=== PATIENT | female | born 1990 | race Caucasian/White ===

== ENCOUNTER 2023-07-28 07:41 | Inpatient (IN) ==
[2023-07-28] MEDS ORDERED: OXYTOCIN 30 UNITS/NSS 30 UNITS/500 ML BAG IV PRN ×3 (08:25→13:04)
[2023-07-28] MEDS ORDERED: LIDOCAINE 1% LOCAL 20 ML VIAL INFIL PRN (08:25)
--- NOTE | 2023-07-28 08:32 | History & Physical Report ---
Date of Service July 28, 2023 Assessment & Plan (1) Elective induction of labor planned: (2) Hx of pre-term labor: (3) History of precipitous delivery: Plan: 33-year-old -0-0-1 at 39 weeks of gestation who was scheduled for induction of labor at term due to history of precipitous labor, Vital signs stable afebrile, heart rate reassuring, GBS negative, Cervix favorable, Plan to admit, labs, IV fluids, monitor, start oxytocin per protocol, epidural a s needed for pain, All questions were answered. Admission and Anticipated Discharge Date Admission Date: July 28, 2023 History of Present Illness Primary Care Provider: Wei Cat PA-C Patient is a 33-year-old -0-0-1 at 39 weeks of gestation who was scheduled for induction of labor at term due to history of prior precipitous labor. She has delivered her first baby within 3 hours from start of labor until delivery of in 2010. During this she had threatened labor which was stopped and then delivered at 37 weeks. Patient denies contractions, leakage of fluid, vaginal bleeding. She reports good movements. This has been uncomplicated. GBS negative. She denies any medical problems. Allergies Allergy/AdvReac Type Severity Reaction Status Date / Time No Known Allergies Allergy Unverified 06/22/23 17:57 Home Medications Medication Instructions Recorded Confirmed Type coenzyme Q10 100 mg capsule 100 mg PO DAILY 06/22/23 06/22/23 History (CoQ-10) magnesium 1 tab PO DAILY 06/22/23 06/22/23 History prenat.vits,susan,[id number] 1 tab PO DAILY 06/22/23 06/22/23 History Patient History Medical History (Updated 07/28/23 @ 08:31 by Go Lemus MD) Hx of pre-term labor Migraine Anemia Social History Smoking Status: Never smoker Second Hand Exposure: No; Hx Alcohol Use: No Hx Substance Use: No Preferred Language: [place] Dynamite Shooter Required: No Beliefs That Will Affect Care: None marital status: Current Living Situation: Spouse Current Living Situation Comment: Lives with , Lnicoln and Daughter Sandie Feels Safe at Home: Yes Safety Concerns: Feels Safe At This Time 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 Review of Systems as per Subjective / HPI Physical Exam Constitutional: WD/WN, vitals as above well developed, well nourished and comfortable Gastrointestinal (Abdomen): normal bowel sounds, soft, nontender, no hepatosplenomegaly (Gravid) Genitourinary: normal external appearance OB Exam Abdomen: + vertex Manual OB Exam: + cervical dilation 4 cm, + cervical effacement 50% and + station -2 OB Exam Monitor Tracing: + external uterine monitor used and + category I Results & Data Vital Signs (Past 12 Hours) Vital Signs Temp Pulse Resp BP 07/28/23 07:59 18 07/28/23 07:59 36.8 C 18 07/28/23 07:55 95 H 117/69
[2023-07-28 08:55] LABS: Hematocrit (blood only) 32.8 % (37.0-47.0); Hemoglobin 11.4 g/dl (12.0-16.0); Mean Corpuscular Hemoglobin 30.6 pg (25.0-34.0); Mean Corpuscular Hgb Conc 34.8 g/dL (32.0-36.0); Mean Corpuscular Volume 87.9 fL (80.0-100.0); Mean Platelet Volume 10.6 fL (9.4-12.4); Platelet Count 209 K/uL (130-400); RDW Standard Deviation 45.2 fL (36.4-46.3); Red Blood Count 3.73 M/uL (4.20-5.40)
[2023-07-28] MEDS: LACTATED RINGER'S 1,000 ML IV PRN ×2 (09:12→11:36)
[2023-07-28] MEDS ORDERED: SODIUM CHLORIDE 0.9% PF INJ 10 ML VIAL ONE (10:53)
[2023-07-28] MEDS ORDERED: fentANYL 2 MCG/ML BUPIVacaine 0.125%-NSS 100ML BAG ONE (10:53)
[2023-07-28] MEDS ORDERED: LIDOCAINE 2%/EPINEPHRINE 1:200,000 20 ML PF ONE (10:53)
[2023-07-28] MEDS ORDERED: fentaNYL citrate PF 100 MCG/2 ML VIAL ONE (10:53)
[2023-07-28] MEDS ORDERED: BUPIVACAINE 0.25% PF 30 ML VIAL ONE (10:53)
[2023-07-28] MEDS ORDERED: ePHEDrine sulfate 50 MG/ML AMP ONE (10:53)
--- NOTE | 2023-07-28 11:09 | Anesthesiology Consultation ---
Date of Service July 28, 2023 Assessment & Plan Chart Review Chart Review: Patient NOT seen in Pre Admission Testing and Acceptable Risk for Labor Epidural Consults Requested none ASA ASA2 Proposed Anesthesia Anesthesia Type: Labor Epidural Risk / Benefits Reviewed With: PT / POA / Parent / Guardian, Accepts Plan and Informed Consent Obtained History Height/Weight Height: 5 ft 2 in Weight: 85.275 kg Allergies Allergy/AdvReac Type Severity Reaction Status Date / Time No Known Allergies Allergy Verified 07/28/23 09:15 Medications Home Medications Medication Instructions Recorded Confirmed Last Taken coenzyme Q10 100 mg capsule 100 mg PO DAILY 06/22/23 07/28/23 06/22/23 (CoQ-10) magnesium 1 tab PO DAILY 06/22/23 07/28/23 06/22/23 prenat.vits,susan,[id number]-[id number] 1 tab PO DAILY 06/22/23 07/28/23 07/27/23 Active Medications Generic Name Dose Route Start Last Admin Trade Name Freq PRN Reason Stop Dose Admin Lactated Ringer's 1,000 mls @ 150 mls/hr 07/28/23 08:25 07/28/23 09:12 Lr IV 07/30/23 08:24 150 mls/hr .[id number] PRN Administration L&D Protocol Protocol Oxytocin 30 units in 500 mls @ 6 mls/hr 07/28/23 08:27 07/28/23 10:30 Pitocin 30 Units/Nss IV 07/30/23 08:26 0.36 units/hr .Q24H PRN 6 mls/hr Labor Induction/Augmentation Titration Protocol 0.36 UNITS/HR NPO Date Last Intake of Fluids: 07/28/23 Time Last Intake of Fluids: 10:30 Date Last Intake of Solids: 07/28/23 Time Last Intake of Solids: 06:30 Past Medical History Medical History Hx of pre-term labor Migraine Anemia Exercise / Class Metabolic Activity II 4-5 Yardwork/Stairs/Walk up hill Past Anesthesia History No Hx of Anesthesia Complications and No Family Hx of Anesthesia Complications History of PONV No Hx of PONV and No Hx of Motion Sickness Social History Smoking Status: Never smoker Hx Alcohol Use: No Hx Substance Use: No substance use type: does not use Review of Systems ROS Unobtainable: All systems reviewed & are unremarkable except as noted in HPI & below Physical Exam Vital Signs Last Vital Signs Temp 36.8 C 07/28/23 07:59 Pulse 74 07/28/23 11:06 Resp 18 07/28/23 07:59 BP 112/68 07/28/23 10:16 Pulse Ox 96 07/28/23 11:06 ENMT Mouth: no TMJ abnormality Thyromental Distance: > or= 3.5 Finger Breadths Mallampati Class: III Neck normal visual inspection and trachea midline; neck extension not limited Respiratory normal respiratory effort Auscultation: lungs clear to auscultation bilaterally Cardiovascular Rate/Rhythm: regular rate and regular rhythm Heart Sounds: no murmur Musculoskeletal Spine: normal cervical ROM Extremities: full ROM of extremities Neurologic moves all extremities Psychiatric Orientation: alert and oriented x 3 Testing Laboratory Results 07/28/23 08:36
[2023-07-28] MEDS ORDERED: ePHEDrine sulfate 50 MG/ML AMP IV PRN (11:26)
[2023-07-28] MEDS ORDERED: diphenhydrAMINE 50 MG/ML VIAL IV PRN (11:26)
[2023-07-28] MEDS ORDERED: BUPIVACAINE 0.25% PF 30 ML VIAL EPI STA (11:26)
[2023-07-28] MEDS ORDERED: ROPIVACAINE 0.5% PF 5 MG/ML 20 ML VIAL EPI PRN (11:26)
[2023-07-28] MEDS ORDERED: BUPIVACAINE 0.25% PF 30 ML VIAL EPI PRN (11:26)
[2023-07-28] MEDS ORDERED: fentANYL 2 MCG/ML BUPIVacaine 0.125%-NSS 100ML BAG EPI PRN (11:26)
[2023-07-28] MEDS ORDERED: NALOXONE HCL 1 MG in SODIUM CHLORIDE 0.9% 1,000 ML IV PRN (11:26)
[2023-07-28] MEDS ORDERED: fentaNYL citrate PF 100 MCG/2 ML VIAL EPI PRN (11:26)
[2023-07-28] MEDS ORDERED: LIDOCAINE 2% MPF LOCAL 5 ML VIAL EPI PRN (11:26)
[2023-07-28] MEDS ORDERED: LIDOCAINE 2%/EPINEPHRINE 1:200,000 20 ML PF EPI STA (11:26)
[2023-07-28] MEDS ORDERED: fentaNYL citrate PF 100 MCG/2 ML VIAL EPI STA (11:26)
[2023-07-28] MEDS ORDERED: NALBUPHINE HCL 5 MG in SYRINGE 0 ML IV PRN (11:26)
[2023-07-28] MEDS ORDERED: SODIUM CHLORIDE 0.9% PF INJ 10 ML VIAL EPI PRN (11:26)
[2023-07-28] MEDS ORDERED: SODIUM CHLORIDE 0.9% PF INJ 10 ML VIAL EPI STA (11:26)
[2023-07-28] MEDS ORDERED: NALOXONE HCL 0.4 MG/1 ML VIAL/CARP IV PRN (11:26)
--- NOTE | 2023-07-28 12:23 | Obstetrical Progress Note ---
Date of Service July 28, 2023 Assessment & Plan Admission and Anticipated Discharge Date Admission Date: July 28, 2023 Subjective Patient had SROM at 10:45 and then received epidural for pain Now fully dilated and started to push. Oxytocin is at 6 miu/min FHR categ I Continue to monitor Anticipate Results & Data Vital Signs (Past 12 Hours) Vital Signs Temp Pulse Resp BP Pulse Ox 07/28/23 12:21 94 H 94 07/28/23 12:19 117 H 108/53 L 07/28/23 12:17 123 H 97/53 L 88 L 07/28/23 12:16 107 H 92 07/28/23 12:15 87 98/55 L 07/28/23 12:13 84 98/55 L 07/28/23 12:11 50 L 107/64 97 07/28/23 12:09 112 H 101/66 07/28/23 12:07 93 H 102/65 07/28/23 12:06 93 H 95 07/28/23 12:05 101 H 97/59 L 07/28/23 12:03 97 H 100/63 07/28/23 12:01 94 H 98/59 L 95 07/28/23 11:59 91 H 93/55 L 07/28/23 11:57 96 H 94/54 L 07/28/23 11:56 100 H 96 07/28/23 11:55 93 H 105/63 07/28/23 11:53 87 100/56 L 07/28/23 11:51 88 98/55 L 97 07/28/23 11:47 93 H 102/63 07/28/23 11:46 87 95 07/28/23 11:45 86 102/60 07/28/23 11:43 96 H 106/59 L 07/28/23 11:41 125 H 07/28/23 11:41 120 H 101/58 L 98 07/28/23 11:39 102 H 104/56 L 07/28/23 11:37 87 99/56 L 07/28/23 11:36 104 H 96 07/28/23 11:35 100 H 103/53 L 07/28/23 11:33 99 H 99/57 L 07/28/23 11:31 91 H 100/56 L 97 07/28/23 11:29 101 H 103/56 L 07/28/23 11:27 97 H 101/54 L 07/28/23 11:26 96 H 96 07/28/23 11:25 88 111/56 L 07/28/23 11:23 100 H 113/66 07/28/23 11:21 107 H 119/65 97 07/28/23 11:16 98 H 100 07/28/23 11:15 89 137/68 07/28/23 11:11 99 H 99 07/28/23 11:06 74 96 07/28/23 11:01 84 99 07/28/23 10:16 93 H 112/68 07/28/23 09:14 94 H 111/72 07/28/23 07:59 18 07/28/23 07:59 36.8 C 18 07/28/23 07:55 95 H 117/69
[2023-07-28] MEDS ORDERED: BENZOCAINE 20% SPRY 85 APPLN/85 GM CAN EXT PRN (13:04)
[2023-07-28] MEDS ORDERED: MEASLES, MUMPS & RUBELLA VIRUS VACCINE (MMR) VIAL SQ ONE (13:04)
[2023-07-28] MEDS ORDERED: HYDROCORTISONE ACETATE 25 MG SUPP PR PRN (13:04)
[2023-07-28] MEDS ORDERED: bisacodyL 10 MG SUPP PR PRN (13:04)
[2023-07-28] MEDS ORDERED: oxyCODONE/ACETAMINOPHEN 5mg/325mg TAB PO PRN (13:04)
[2023-07-28] MEDS ORDERED: ACETAMINOPHEN 325 MG TAB PO PRN (13:04)
[2023-07-28] MEDS ORDERED: DIPHTHERIA/TETANUS/PERTUSSIS Vaccine (Tdap, Age 7+yrs) 0.5mL SYR/VL IM ONE (13:04)
--- NOTE | 2023-07-28 13:08 | Delivery Summary ---
Vaginal Delivery Summary Date of Service July 28, 2023 Vaginal Delivery Summary Patient was found to be fully dilated and desired to push. She pushed for about half an hour and delivered the head and then shoulders with minimal traction at 12:41. The baby was handed off to the mother. The cord was clampedx2 and cut at 1 minute. The vagina and perineum were checked and found to have small 2nd degree perineal laceration. Rectal exam was done and noted good sphincter tone. The gloves were changes. The vaginal mucosa was repaired with 2/0 vicryl and skin on subcuticular fashion. The placenta was delivered spontaneously as intact and complete. The uterus was explored and found to be empty. EBL was 200 ml. The fundus was firm The baby was a viable female infant, Apgars 9/9, the weight is pending. The mother and the baby tolerated the procedure well. No complications happened and I was present during whole procedure.
--- NOTE | 2023-07-28 13:56 | Anesthesia Procedure Note ---
Date of Service July 28, 2023 Anesthesia Post Epidural Note Vital Signs Vital Signs: Temp Pulse Resp BP Pulse Ox 36.6 C 70 20 102/61 95 07/28/23 11:00 07/28/23 13:41 07/28/23 11:00 07/28/23 13:41 07/28/23 12:56 Notes Mental Status: alert / awake / arousable and participated in evaluation Nausea / Vomiting: adequately controlled Pain: adequately controlled Airway Patency, RR, SpO2: stable & adequate BP & HR: stable & adequate Hydration State: stable & adequate Neuraxial Anesthesia: was administered and sensory block is resolving Anesthetic Complications: no major complications apparent Epidural: Removed without complications and With tip intact
[2023-07-28] MEDS: IBUPROFEN 600 MG TAB PO PRN (20:33)
[2023-07-28] MEDS: DOCUSATE SODIUM 100 MG CAP PO SCH (20:33)
[2023-07-29] MEDS: IBUPROFEN 600 MG TAB PO PRN ×3 (01:17→12:03)
[2023-07-29 07:36] LABS: Hematocrit (blood only) 30.8 % (37.0-47.0); Hemoglobin 10.6 g/dl (12.0-16.0); Mean Corpuscular Hemoglobin 31.2 pg (25.0-34.0); Mean Corpuscular Hgb Conc 34.4 g/dL (32.0-36.0); Mean Corpuscular Volume 90.6 fL (80.0-100.0); Mean Platelet Volume 10.7 fL (9.4-12.4); Platelet Count 184 K/uL (130-400); RDW Coefficient of Variation 14.4 % (11.5-14.5); RDW Standard Deviation 47.2 fL (36.4-46.3); White Blood Count 13.59 K/ul (4.8-10.8)
[2023-07-29] MEDS: DOCUSATE SODIUM 100 MG CAP PO SCH (07:42)
[2023-07-29] MEDS ORDERED: PRENATAL VITAMIN 1 TAB PO SCH (08:00)
[2023-07-29] MEDS ORDERED: FERROUS SULFATE 325 MG TAB PO SCH (08:00)
--- NOTE | 2023-07-29 11:22 | Obstetrical Progress Note ---
Date of Service July 29, 2023 Subjective Ambulation: ambulating normally Voiding: no voiding problems Passing Gas:: Yes Lochia:: Small Feeding Type:: bottle feeding Current Pain Level(1-10): 0 doing well. wants to go home Physical Exam Constitutional WD/WN, vitals as above Gastrointestinal (Abdomen) Inspection/Auscultation: abdomen normal to inspection abdomen soft and non-tender Musculoskeletal Extremities: extremities normal to inspection Skin no rashes, warm and dry Neurologic patellar DTR's 2+ bilat, sensation intact Psychiatric A+Ox3, euthymic affect Results & Data Vital Signs (Past 12 Hours) Vital Signs Temp Pulse Resp BP Pulse Ox O2 Del Method 07/29/23 07:45 Room Air 07/29/23 07:45 36.4 C L 91 H 18 105/69 97 Room Air 07/29/23 03:09 36.5 C 73 18 104/68 98 Room Air Laboratory Results 07/28/23 07/29/23 08:36 07:04 WBC 10.40 13.59 H RBC 3.73 L 3.40 L Hgb 11.4 L 10.6 L Hct 32.8 L 30.8 L MCV 87.9 90.6 MCH 30.6 31.2 MCHC 34.8 34.4 RDW Std Deviation 45.2 47.2 H RDW Coeff of Nguyễn 14.0 14.4 Plt Count 209 184 MPV 10.6 10.7
[2023-07-29] MEDS ORDERED: bisacodyL 5 MG TABEC PO SCH (20:00)
== END 2023-07-29 15:00 | disposition home or self-care (01) | DRG 807 ==
LOC: 4S1 07:41 → 4E2 15:19